=== PATIENT | female | born 1995 | race African-American/Black ===

== ENCOUNTER 2019-05-28 19:10 | Emergency (ER) | payer MEDICAID ==
[~2019-05-28] VITALS: Ht 160 cm; Wt 90.7 kg
[2019-05-28 19:52] VITALS: BP 112/56
[2019-05-28 20:26] LABS: Urine Bacteria NONE SEEN /hpf (None Seen); Urine Blood 1+ /uL (Negative); Urine Mucus FEW (None Seen); Urine Specific Gravity 1.032 (1.001-1.035); Urine WBC 16 /hpf (0 - 5)
[2019-05-28] MEDS ORDERED: cefTRIAXone SOD 1,000 MG VL IM ONE (22:00)
[2019-05-28] MEDS ORDERED: KETOROLAC TROMETH 60MG/2ML VIAL IM ONE (22:00)
[2019-05-28] MEDS ORDERED: LIDOCAINE 1% HCL (LOCAL ANESTH.) INJ 20ML MDV ONE (22:04)
[2019-05-28] MEDS ORDERED: LIDOCAINE 1% HCL (LOCAL ANESTH.) INJ 20ML MDV IJ ONE (22:30)
== END 2019-05-28 22:32 | disposition home or self-care (01) ==
LOC: ER 19:12
DX: N39.0 Urinary tract infection, site not specified (principal)
CPT/HCPCS: 81001; 81025; 96372; 99283; J0696; J1885; J2001

== ENCOUNTER 2020-10-26 17:45 | Emergency (ER) | payer MEDICAID ==
[~2020-10-26] VITALS: Ht 160 cm; Wt 86.2 kg
[2020-10-26 17:55] VITALS: BP 131/70
[2020-10-26] MEDS ORDERED: methylPREDNISolone SOD SUCC 125 MG/2 ML VL IM ONE (18:30)
[2020-10-26] MEDS ORDERED: KETOROLAC TROMETH 60MG/2ML VIAL IM ONE (18:30)
== END 2020-10-26 19:04 | disposition home or self-care (01) ==
LOC: EDBD 17:45 → ER 17:45
DX: H60.501 Unspecified acute noninfective otitis externa, right ear (principal)
CPT/HCPCS: 96372; 99284; J1885; J2930

== ENCOUNTER 2023-02-09 03:31 | Emergency (ER) | payer OTHER, MEDICAID ==
[~2023-02-09] VITALS: Ht 160 cm; Wt 106.3 kg
[2023-02-09] MEDS ORDERED: ACETAMINOPHEN 325 MG TAB PO ONE (04:45)
[2023-02-09] MEDS ORDERED: ACET500T58 PO (04:47)
[2023-02-09] MEDS ORDERED: AMOX875T4 PO ×3 (04:47→18:14)
[2023-02-09 04:58] VITALS: BP 114/65
[2023-02-09] MEDS ORDERED: IBUP-1456 PO ×2 (05:28)
[2023-02-09] MEDS ORDERED: KETOROLAC TROMETH 60MG/2ML VIAL IM ONE (05:30)
[2023-02-09] MEDS ORDERED: IBUP-1455 PO (18:14)
== END 2023-02-09 06:00 | disposition home or self-care (01) ==
LOC: ER 03:31
DX: H66.92 Otitis media, unspecified, left ear (principal)
CPT/HCPCS: 96372; 99283; J1885

== ENCOUNTER 2023-05-05 14:08 | Emergency (ER) | payer OTHER, MEDICAID ==
[~2023-05-05] VITALS: Ht 160 cm; Wt 98.0 kg
[~2023-05-05 14:08] MED LIST: AMOX875T4 PO; IBUP-1455 PO
[2023-05-05 14:55] VITALS: BP 118/74; PULSE 66; RESP 18; TEMP 97.4; O2SAT 99
[2023-05-05] MEDS ORDERED: TOB03OS OP (15:07)
[2023-05-05] MEDS ORDERED: CEPH500C PO (15:07)
== END 2023-05-05 15:12 | disposition home or self-care (01) ==
LOC: ER 14:08
DX: H00.024 Hordeolum internum left upper eyelid (principal); Z79.1 Long term (current) use of non-steroidal anti-inflammatories (NSAID); Z79.2 Long term (current) use of antibiotics; Z79.899 Other long term (current) drug therapy